=== PATIENT | male | born 1975 | race Caucasian/White ===

== ENCOUNTER 2020-05-04 02:24 | Outpatient (CLI) | payer OTHER, SELFPAY ==
[2020-05-04 19:02] LABS: SARS-CoV-2 RNA PCR Negative
== END 2020-05-04 02:25 | disposition home or self-care (01) ==
LOC: ANHCOVIDDT 02:25
PROVIDERS: PCP Family Medicine; Visit Provider Internal Medicine Critical Care Medicine
DX: Z01.812 Encounter for preprocedural laboratory examination (principal); Z20.828 Contact with and (suspected) exposure to other viral communicable diseases
CPT/HCPCS: 87635; C9803; U0003

== ENCOUNTER 2020-05-06 07:14 | Outpatient (CLI) | payer OTHER, SELFPAY ==
--- NOTE | 2020-06-01 15:13 | WPDSLEEPSTUD ---
Sleep Study Date of Study: 05/06/20 Ordering Provider: Jennifer Núñez MD Interpreting Physician: Jennifer Núñez MD Sleep Study Type: Split Polysomnogram Height: 1.91 m Weight: 127.006 kg Body Mass Index: 34.9 Neck Circumference: 48.26 cm [place]: 13 Reason for Sleep Study DEISY Sleep History Sedrick Brizuela is a 44 yo man with non restorative sleep loud snoring who had a home sleep test Aug 09, 2017 showing severe DEISY with an AHI 45.5 associated with heavy snoring of multiple severe oxygen desaturations. he was tested for sleep apnea in 2018 with a home sleep test showing severe sleep apnea with an AHI of 45.5 with heavy snoring and multiple severe desaturation to to a minimum of 81%. He does not feel refreshed when he wakes in the morning. There is a family history with his father and sister both using CPAP. He rarely awakens at night with heartburn, belching or coughing. He occasionally awakens from sleep feeling short of breath. He rarely has trouble sleep with a cold. He occasionally wakes up gasping for breath at night. He frequently has breathing problems at night observed by others. Frequently sweats excessively at night and notices his heart pounding or beating irregularly at night. He occasionally falls asleep during the day, rarely involuntarily and rarely while driving. Does not fall asleep during physical effort. He does not have loss of muscle tone was strong emotion. 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 He does not feel paralyzed on waking or falling asleep. He rarely has vivid dreamlike scenes upon awakening or falling asleep. He has never a freight to go to sleep. He does not have nightmares. He occasionally remembers his dreams. He occasionally has racing thoughts. He rarely feels sad or depressed. He occasionally has anxiety. He rarely has muscular tension. He occasionally notices parts of his body jerking. He rarely kicks at night. He rarely has crawling and aching feelings in his legs. Does not have leg pain at night. He denies morning jaw pain and does not grind his teeth during sleep. He rarely is bothered by pain during the day, rarely is awakened by pain at night, rarely wakes up feeling stiff in the morning. He does not wake up with sore or achy muscles. He rarely wakes up with neck and spine pain. He has fatigue and takes antacids regularly. Normal bedtime is between 9:10 p.m. falling asleep within minutes, waking 2 or 3 times at night to use the bathroom. He wakes in the morning between 5 and 6:00 a.m.. He estimates 6-8 hours of sleep at night. Weekends, he stays awake later going to bed between 10:00 p.m. and midnight waking between 8 and 9 in the morning. He does take naps. A short nap may be refreshing. He is drowsy in the morning for 1 hour or longer. Habits: He smoked tobacco years ago. Caffeine 2 servings per day. Alcohol is on the weekends mainly. No recreational drugs. [facility] Past Medical History Medical History (Updated 06/01/20 @ 15:34 by Jennifer Núñez MD) Chronic inflammatory demyelinating polyneuritis Metabolic syndrome Obesity (BMI 35.0-39.9 without comorbidity) Prurigo nodularis Tachycardia Surgical History Surgical History (Updated 06/01/20 @ 15:34 by Jennifer Núñez MD) History of hemorrhoidectomy Family History Family History Father Hypertension Grandparent Diabetes mellitus Acute myocardial infarction Other Family history of cardiovascular disease Family history of malignant neoplasm Social History Social History Smoking status: Former smoker Smoking end date: 07/16/11 Alcohol intake: current Medications Home Medications Medication Instructions Recorded Confirmed Type aspirin 325 mg tablet 325 mg PO DAILY 08/06/19 04/12/20 History cholecalciferol (vitamin D3) 125 125 mcg PO DAILY
[2020-06-01 15:39] VITALS: BMI 34.9
== END 2020-05-06 07:15 | disposition home or self-care (01) ==
LOC: ANHCSM 07:15
PROVIDERS: PCP Family Medicine; Visit Provider Internal Medicine Critical Care Medicine
DX: G47.33 Obstructive sleep apnea (adult) (pediatric) (principal)
CPT/HCPCS: 95811

== ENCOUNTER 2021-04-14 14:35 | Outpatient (CLI) | payer OTHER, SELFPAY ==
--- NOTE | 2021-04-14 14:41 | ECG_ITS ---
Measurements Intervals [place] Rate: 85 P: 35 HI: 171 QRS: 30 QRSD: 108 T: -20 QT: 346 QTc: 414 Interpretive Statements SINUS RHYTHM WITH SINUS ARRHYTHMIA BORDERLINE R WAVE PROGRESSION, ANTERIOR LEADS CONSIDER INFERIOR INFARCT, AGE INDETERMINATE ABNORMAL ECG Electronically Signed On 04-14-2021 15:41:55 CDT by Neto Ibrahim D.O.
[2021-04-14 15:10] LABS: Anion Gap 11 mmol/L (8-16); Blood Urea Nitrogen 14 mg/dL (9-20); Calcium 9.4 mg/dL (8.4-10.2); Carbon Dioxide 25 mmol/L (22-30); Chloride 103 mmol/L (98-107); Estimated Glomerular Filt Rate > 60; Glucose 123 mg/dL (65-110); Potassium 3.7 mmol/L (3.4-5.0); Sodium 139 mmol/L (137-145)
== END 2021-04-14 14:36 | disposition home or self-care (01) ==
PROVIDERS: Anesthesiology; PCP Family Medicine; Visit Provider Surgery
DX: Z01.818 Encounter for other preprocedural examination (principal); Z79.899 Other long term (current) drug therapy; I10 Essential (primary) hypertension
CPT/HCPCS: 36415; 80048; 93005

== ENCOUNTER → 2021-04-16 00:09 | Outpatient (CLI) | payer OTHER, SELFPAY ==
[2021-04-16 19:34] LABS: SARS-CoV-2 RNA PCR Negative
== END ==
PROVIDERS: PCP Family Medicine; Visit Provider Surgery
DX: Z01.812 Encounter for preprocedural laboratory examination (principal); Z20.822 Contact with and (suspected) exposure to COVID-19
CPT/HCPCS: C9803; U0003; U0005

== ENCOUNTER 2021-04-21 12:58 | Observation (INO) | payer OTHER, SELFPAY ==
[2021-04-13 09:23] VITALS: BMI 36.1
[2021-04-20] VITALS (19 sets, daily range): BP systolic 132–155; BP diastolic 80–93; PULSE 88–104; RESP 12–25; TEMP 37–37.1; O2SAT 88–97
[2021-04-20] MEDS: ACETAMINOPHEN 500 MG TABLET 1000 MG PO (08:25)
[2021-04-20] MEDS: KETOROLAC 15 MG/ML VIAL (*BKC) IV PUSH (08:35)
[2021-04-20] MEDS: LACTATED RINGERS 1,000 ML 30 ML IV CONT ×3 (08:40→13:42)
[2021-04-20 08:46] LABS: Hematocrit 47.6 % (42.0-52.0); Hemoglobin 16.1 g/dL (14.0-18.0); Mean Corpuscular HGB Conc 33.8 g/dl (32-36); Mean Corpuscular Hemoglobin 28.5 pg (26-34); Mean Corpuscular Volume 84.4 fl (80-100); Mean Platelet Volume 9.4 fl (7.4-10.4); Platelet Count Result 264 k/mm3 (150-375); Red Blood Count 5.64 M/mm3 (4.6-6.20); Red Cell Distribution Width 12.8 % (11.5-14.5); White Blood Count 20.8 K/mm3 (4.5-10.0)
--- NOTE | 2021-04-20 09:29 | WPDANESEPPF ---
Anes - Initial Pre Proc Eval Procedure: Operation Date: 04/20/21 10:00 Proposed Procedures p Laparoscopic Repair Ventral and Umbilical Hernia - Ashish Smith MD Date/Time: 04/20/21 09:29 Surgeon: Ashish Smith MD Pre Op Diagnosis: ventral hernia, umbilical hernia Patient Data Age: 45 Gender: M Height: 1.89 m Weight: 127 kg Last Vital Signs Temp 37.1 C 04/20/21 08:14 Pulse 104 H 04/20/21 08:14 Resp 16 04/20/21 08:14 BP 155/85 H 04/20/21 08:14 Pulse Ox 97 04/20/21 08:14 Allergies Allergy/AdvReac Type Severity Reaction Status Date / Time No Known Allergies Allergy Unknown Verified 04/20/21 08:15 Home Medications Medication Instructions Recorded Confirmed Type aspirin 325 mg tablet 325 mg PO HS 08/06/19 04/20/21 History cholecalciferol (vitamin D3) 125 125 mcg PO DAILY 08/06/19 04/20/21 History mcg (5,000 unit) tablet loratadine 10 mg tablet 10 mg PO DAILY 08/06/19 04/20/21 History testosterone cypionate 200 mg/mL 200 mg IM WEEKLY ml 08/06/19 04/20/21 History intramuscular oil omeprazole magnesium 20 mg 20 mg PO DAILY 03/15/21 04/20/21 History tablet,delayed release lisinopril 20 1 tablet PO DAILY #90 tablet 04/07/21 04/20/21 Rx mg-hydrochlorothiazide 12.5 mg tablet albuterol sulfate 2 puff INHALATION Q4H PRN 04/13/21 04/20/21 History amlodipine 10 mg PO HS 04/13/21 04/20/21 History Laboratory Tests 04/20/21 08:14 WBC 20.8 K/mm3 H K/mm3 (4.5-10.0) RBC 5.64 M/mm3 M/mm3 (4.6-6.20) Hgb 16.1 g/dL g/dL (14.0-18.0) Hct 47.6 % % (42.0-52.0) MCV 84.4 fl fl (80-100) MCH 28.5 pg pg (26-34) MCHC 33.8 g/dl g/dl (32-36) RDW 12.8 % % (11.5-14.5) Plt Count 264 k/mm3 k/mm3 (150-375) MPV 9.4 fl fl (7.4-10.4) Patient hx anesthesia problems: none Family hx anesthesia problems: none Results Review: All pre-operative results and documents have been reviewed as part of the pre-operative evaluation. [facility] Past Medical History Medical History Chronic inflammatory demyelinating polyneuritis Essential (primary) hypertension Metabolic syndrome Obesity (BMI 35.0-39.9 without comorbidity) Prurigo nodularis Tachycardia Surgical History Surgical History History of hemorrhoidectomy Family History Family History Father Hypertension Grandparent Diabetes mellitus Acute myocardial infarction Other Family history of cardiovascular disease Family history of malignant neoplasm Social History Social History Smoking packs per day: 1 Smoking cigarettes per day: 20.0 Years smoked: 15 Smoking pack-years: 15.00 Smoking status: Former smoker Tobacco type: cigarettes Smoking end date: 07/16/15 Alcohol intake: current Drinks per week: 15 Alcohol use details: BEER Substance use: never Substance use type: does not use Living arrangements: with family 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 Informed Consent: The patient's anesthetic plan and its attendant risks and benefits were discussed with the patient/family/POA. Questions were solicited and answers provided to the satisfaction of the patient/family/POA.
--- NOTE | 2021-04-20 09:58 | WPDHPUPDATE1 ---
History and Physical Update Update Date/Time: 04/20/21 09:58 Patient's [place] [address]. Patient examined fully and thorough history taken. He has not had any fever chills dysuria diarrhea or other changes to his usual status. He feels perfectly fine. He has no explanation for why his white blood cell count would be elevated. He has not taken steroids for his demyelinating condition for 6 years. He did receive a testosterone injection 2 days ago which is in my opinion the most likely reason for the elevation. I discussed with him the possibility that there is an occult infection causing the elevated white count. I do not think this is very likely. I think it is safe to go ahead. I did also explained that the risk of proceeding with an elevated white count could be a slightly higher risk of infection from the procedure. The patient would very much like to go ahead today. I think that risk is very minimal. We will go ahead as planned. History and Physical has been reviewed, including an updated exam of the patient. There are NO changes in the patient's condition, other than discussed above. Risks, benefits, and alternatives have been discussed and questions answered. Patient agrees to proceed with procedure.
--- NOTE | 2021-04-20 10:01 | SUR.PREOP ---
dr salguero aware of cbc results with elevated wbc.
[2021-04-20] MEDS: ceFAZolin 3 GM/D5W 100 ML 100 ML IVPB (10:12)
[2021-04-20] MEDS: fentaNYL CITRATE INJ (*CRX) 100 MCG/2 ML VIAL 25 MCG IV PUSH ×8 (12:23→15:18)
--- NOTE | 2021-04-20 12:46 | W.PM.PROC2 ---
Procedure Note - Detailed Date of Procedure 04/20/21 Pre-op Diagnosis ventral hernia, umbilical hernia Post-op Diagnosis same Procedure Performed Laparoscopic repair of ventral and umbilical hernias with 15 x 20 cm Symbotex mesh Surgeon Ashish Smith MD [place] [employer] [facility]ia PENA Anesthesia general and local (1% lidocaine with epinephrine) Indications Patient is a 45-year-old man who noticed a bulge with some discoloration of his umbilical skin. He also has pain and a bulge several cm cephalad to that. He was examined in the office and found to have both a primary ventral hernia in the mid abdomen as well as an umbilical hernia with dusky umbilical skin. He is taken to surgery now for laparoscopic repair of both hernias. Findings Two hernia defects were noted. Both were under 2 cm in size. They were about 5 or 6 cm separate from 1 another. 20 x 15 cm mesh covered both defects with at least 5 cm mesh overlap in all directions. Description of Procedure Patient was taken to surgery and induced into general anesthesia. The abdomen was prepped and draped. Trocars were placed in the usual fashion using 1% lidocaine with epinephrine and applied Medical optical trocars. The left subcostal trocar was placed 1st. Another 5 mm trocar was placed in the left mid abdomen. A 10 11 trocar was placed in the left lower quadrant. Later in the surgery another 5 mm port was placed in the right lateral mid abdomen. The 2 hernias were easily seen laparoscopically. Both had some omentum chronically incarcerated within the hernia defects. This was taken down sharply with minimal cautery. No bowel involvement was present at all. Some hernia sac was also removed from the ventral hernia. The defects were about 5 cm apart and each was less than 2 cm in diameter. A 20 x 15 cm Symbotex was chosen. The mesh was placed over the 2 hernias and an outline of the mesh was drawn on the skin. The anticipated location of the 4 transfascial sutures were then marked along this outline. I then placed 4 sutures of 2-0 Cornell-Drake on the mesh. The mesh was rolled and introduced through the left lower quadrant 10 11 port. It was then opened and turned so that it was appropriately oriented. I used the Skytide suture pass device and passed each of the transfascial sutures through the abdominal wall in the location previously marked. Each of the sutures was then tightened so that the mesh would be placed in its proper position. It covered both defects symmetrically and with at least 5 cm overlap in all directions. I desufflated the abdomen and tied down each of the Cornell-Drake sutures. We then reinsufflated to 12 mmHg. The right-sided 5 mm port was placed. I used the secure strap and secured the mesh to the anterior abdominal wall. Double crown technique was used. The mesh looked to be well secured and in good position. I cut the extra length on the transfascial sutures. The left lateral transfascial suture not came undone at this point. I removed this transfascial suture as it did not really appear to be necessary. We checked again for bleeding or other issues. None was noted. I used the granny suture passed device and the Shine cone and closed the fascia at the left lower quadrant 10 11 trocar site. We then evacuated CO2 and removed the trocar sleeves. The trocar sites were closed at the skin level with 4-0 Monocryl subcuticular skin suture. The sites were dressed with Exofin surgical adhesive. The transfascial suture sites were closed with Exofin as well. The patient was awakened, extubated and taken to recovery in good condition. Sponge and needle counts were correct x2. Implants 15 x 20 cm Symbotex mesh Estimated Blood Loss -5.0 Drains No Packing No Pathology none sent Complications No immediate complications Condition stable Disposition PACU
--- NOTE | 2021-04-20 13:18 | SUR.PHASEI ---
pt is stable and comfortable and now waiting on a room inpt.
--- NOTE | 2021-04-20 15:03 | SUR.PHASEI ---
this nurse called the floor and they said they said they did not get the sbar fexed at 1435. this nurse faxed it again at 1455
[2021-04-20] MEDS: MORPHINE SULFATE (*CRX) 4 MG/ML INJ IV PUSH ×3 (16:02→22:03)
[2021-04-20] MEDS: SENNA/DOCUSATE SODIUM TABLET 2 TAB PO (20:02)
[2021-04-20] MEDS: ASPIRIN 325 MG TABLET PO (20:02)
[2021-04-20] MEDS: amLODIPine BESYLATE 5 MG TABLET 10 MG PO (20:02)
[2021-04-20] MEDS: ENOXAPARIN 30 MG/0.3 ML SYRINGE SUB-Q (20:03)
[2021-04-20] MEDS: HYDROcodone/acetaminophen (*CRX) 5-325 MG TABLET 1 TAB PO (20:21)
[2021-04-21] VITALS (7 sets, daily range): BP systolic 109–143; BP diastolic 62–86; PULSE 66–87; RESP 16–18; TEMP 36.3–37.3; O2SAT 94–99
[2021-04-21] MEDS: MORPHINE SULFATE (*CRX) 4 MG/ML INJ IV PUSH ×4 (00:22→18:43)
[2021-04-21 05:57] LABS: Mean Corpuscular HGB Conc 34.1 g/dl (32-36); Mean Corpuscular Hemoglobin 29.2 pg (26-34); Mean Corpuscular Volume 85.8 fl (80-100); Mean Platelet Volume 9.3 fl (7.4-10.4); Platelet Count Result 244 k/mm3 (150-375); Red Blood Count 5.13 M/mm3 (4.6-6.20); Red Cell Distribution Width 13.1 % (11.5-14.5)
[2021-04-21 06:06] LABS: Anion Gap 7 mmol/L (8-16); Blood Urea Nitrogen 10 mg/dL (9-20); Calcium 8.5 mg/dL (8.4-10.2); Carbon Dioxide 26 mmol/L (22-30); Chloride 105 mmol/L (98-107); Estimated CRCL calculation 165 ml/min; Estimated Glomerular Filt Rate > 60; Glucose 99 mg/dL (65-110); Potassium 3.8 mmol/L (3.4-5.0); Sodium 138 mmol/L (137-145)
[2021-04-21] MEDS: CHOLECALCIFEROL 1,000 UNITS TABLET 5000 UNITS PO (08:06)
[2021-04-21] MEDS: polyethylene glycoL 3350 17 GM POWD.PACK PO (08:06)
[2021-04-21] MEDS: lisinopriL 20 MG TABLET PO (08:07)
[2021-04-21] MEDS: hydroCHLOROthiazide 12.5 MG CAPSULE PO (08:07)
--- NOTE | 2021-04-21 09:39 | WPDANESPN ---
Anes - Prog Note Post-Op Date/Time: 04/21/21 09:39 Cardiovascular status: normal Respiratory status: normal Airway patency: baseline Mental status: baseline Post-Op hydration status: normal Vital Signs: Last Vital Signs Temp 36.9 C 04/21/21 05:40 Pulse 77 04/21/21 05:40 Resp 18 04/21/21 05:40 BP 143/85 H 04/21/21 05:40 Pulse Ox 99 04/21/21 05:40 Pain Score (VAS): 0 I/O: Intake & Output 04/20/21 04/21/21 04/21/21 23:59 07:59 15:59 Intake Total 740 500 240 Output Total 700 1300 Balance 40 -800 240 Laboratory Tests 04/21/21 05:37 04/21/21 05:37 04/21/21 04/21/21 05:37 05:37 WBC 14.0 H RBC 5.13 Hgb 15.0 Hct 44.0 MCV 85.8 MCH 29.2 MCHC 34.1 RDW 13.1 Plt Count 244 MPV 9.3 Sodium 138 Potassium 3.8 Chloride 105 Carbon Dioxide 26 Anion Gap 7 L BUN 10 Creatinine 0.70 Estim Creat Clear Calc 165 Estimated GFR > 60 Glucose 99 Calcium 8.5 Post-procedural complaints: none Patient Feedback: Patient satisfied with anesthetic care.
[2021-04-21] MEDS: ENOXAPARIN 40 MG/0.4 ML SYRINGE SUB-Q (09:50)
[2021-04-21] MEDS: LORATADINE 10 MG TABLET PO (09:50)
--- NOTE | 2021-04-21 09:50 | PM.PNGS ---
Progress Note: A&P Assessment and Plan (1) Ventral hernia without obstruction or gangrene: Code(s): K43.9 - Ventral hernia without obstruction or gangrene Status: Acute Assessment and Plan: Postop day 1 and patient is having quite a bit of pain this morning. He is still requiring IV analgesics. Will give a secondary option for Casey for more severe pain. Encouraged switching to oral analgesics when able. Also encouraged to start increasing activity and try ambulating today. Repeat labs tomorrow. Hopefully, the patient can be discharged in the next 1-2 days if he continues to improve. (2) Asthma: Qualifiers: Asthma severity: unspecified severity Asthma persistence: unspecified Asthma complication type: unspecified Qualified Code(s): J45.909 - Unspecified asthma, uncomplicated Code(s): J45.909 - Unspecified asthma, uncomplicated Status: Acute Assessment and Plan: Stable. No wheezing on exam or respiratory complaints. Continue PRN Albuterol. (3) Essential (primary) hypertension: Code(s): I10 - Essential (primary) hypertension Status: Chronic Assessment and Plan: BP stable. Continue home medication. (4) Leukocytosis: Code(s): D72.829 - Elevated white blood cell count, unspecified Status: Acute Assessment and Plan: Leukocytosis of an unknown etiology noted on pre-op labs with WBC 20,000. No evidence or signs of an infectious process. Repeat labs today showed WBC down to 14,000. Will repeat labs again tomorrow and monitor. Additional Plan I have discussed the plan of care with Dr. Salguero. Subjective Subjective Date/Time Seen: 04/21/21 09:50 Post Op day: 1 (Laparoscopic repair of ventral and umbilical hernias with Symbotex mesh) Patient reports: still having pain, tolerating a regular diet, voiding w/o difficulty, no flatus, no bowel movement and afebrile Interval history: This is a 45-year-old male who presented yesterday for an elective laparoscopic ventral and umbilical hernia repair. He underwent surgery by Dr. salguero yesterday. Following surgery, he has been having postoperative pain requiring IV analgesics. The patient is now seen and examined this morning. He reports feeling very sore and sat up in the chair this morning for the 1st time since surgery. He very recently had morphine, which she states has helped his pain but quickly returns as the source off. No nausea or vomiting. Tolerating his diet. No other complaints at this time. Review of Systems Review of Systems: All systems reviewed & are unremarkable except as noted in HPI and below Constitutional: Constitutional: Reports as per HPI, Reports no additional constitutional complaints, Denies chills and Denies fever(s) Cardiovascular: Cardiovascular: Reports no additional cardiovascular complaints, Denies chest pain and Denies leg edema Respiratory: Respiratory: Reports no additional respiratory complaints, Denies cough and Denies dyspnea Gastrointestinal: Gastrointestinal: Reports as per HPI and Reports no additional gastrointestinal complaints Neurologic: Reports system reviewed and no additional complaints, except as documented, Denies Abnormal speech present and Denies focal weakness Exam Const: General: comfortable, no acute distress, alert and awake Orientation/consciousness: patient oriented x3 Resp: Effort & Inspection: normal respiratory effort Auscultation: clear to auscultation bilaterally Cardio: Rate: regular rate Rhythm: regular rhythm GI: Inspection: non-distended and obesity GI Palp: Yes Soft to palpation, Yes Tenderness to palpation present (GI) (incisional), No Guarding due to palpation present (GI) and No Hernia present Auscultation: Hypoactive bowel sounds present Other: Trocar incisions clean and dry, minimal localized ecchymosis no more than expected Skin: General skin exam: normal color Neuro: General: moves all extremities and no focal motor defici
[2021-04-21] MEDS: HYDROcodone/acetaminophen (*CRX) 10-325 MG TABLET 1 TAB PO ×3 (10:25→22:35)
[2021-04-21] MEDS: MORPHINE SULFATE (*CRX) 2 MG/ML INJ IV PUSH (13:18)
[2021-04-21] MEDS: SENNA/DOCUSATE SODIUM TABLET 2 TAB PO (20:06)
[2021-04-21] MEDS: amLODIPine BESYLATE 5 MG TABLET 10 MG PO (20:06)
[2021-04-21] MEDS: ASPIRIN 325 MG TABLET PO (20:07)
[2021-04-22 04:15] VITALS: BP 124/74; PULSE 81; RESP 17; TEMP 37.1; O2SAT 97
[2021-04-22] MEDS: HYDROcodone/acetaminophen (*CRX) 10-325 MG TABLET 1 TAB PO ×2 (04:48→10:48)
[2021-04-22 05:55] LABS: Hematocrit 46.4 % (42.0-52.0); Mean Corpuscular HGB Conc 32.3 g/dl (32-36); Mean Corpuscular Hemoglobin 28.4 pg (26-34); Mean Corpuscular Volume 87.7 fl (80-100); Mean Platelet Volume 8.9 fl (7.4-10.4); Platelet Count Result 231 k/mm3 (150-375); Red Blood Count 5.29 M/mm3 (4.6-6.20); Red Cell Distribution Width 13.2 % (11.5-14.5); White Blood Count 10.4 K/mm3 (4.5-10.0)
[2021-04-22 06:04] LABS: Anion Gap 6 mmol/L (8-16); Blood Urea Nitrogen 10 mg/dL (9-20); Calcium 8.5 mg/dL (8.4-10.2); Carbon Dioxide 30 mmol/L (22-30); Chloride 101 mmol/L (98-107); Estimated CRCL calculation 146 ml/min; Estimated Glomerular Filt Rate > 60; Glucose 101 mg/dL (65-110); Potassium 4.1 mmol/L (3.4-5.0); Sodium 137 mmol/L (137-145)
[2021-04-22] MEDS: CHOLECALCIFEROL 1,000 UNITS TABLET 5000 UNITS PO (08:44)
[2021-04-22] MEDS: lisinopriL 20 MG TABLET PO (08:44)
[2021-04-22] MEDS: ENOXAPARIN 40 MG/0.4 ML SYRINGE SUB-Q (08:44)
[2021-04-22] MEDS: hydroCHLOROthiazide 12.5 MG CAPSULE PO (08:44)
[2021-04-22] MEDS: LORATADINE 10 MG TABLET PO (08:45)
[2021-04-22] MEDS: polyethylene glycoL 3350 17 GM POWD.PACK PO (08:46)
--- NOTE | 2021-04-22 10:42 | PM.DS ---
DS: Admitting Diagnosis Discharge Date 04/22/2021 Admitting Diagnosis ventral and umbilical hernias obesity asthma DS: Discharge Diagnosis Discharge Diagnosis (1) Ventral hernia without obstruction or gangrene: Code(s): K43.9 - Ventral hernia without obstruction or gangrene Status: Acute (2) Obstructive sleep apnea syndrome: Onset Date: ~2017 Code(s): G47.33 - Obstructive sleep apnea (adult) (pediatric) Status: Chronic DS: Summary Hospital Course Hospital Course: patient noticed both an umbilical bulge and a bulge above the umbilicus in the midline. The umbilical bulge had gotten larger and the umbilical skin was discolored. He was seen in the office and found to have both a primary ventral hernia in the mid abdomen as well as an umbilical hernia just below the ventral hernia. He was taken to surgery on the day of admission, 04/20/2021 and underwent laparoscopic repair of both hernias with 20 x 15 Symbotex mesh. Postoperatively he did well. He was still requiring IV analgesics on postoperative day 1. But was comfortable on oral analgesics on postop day 2. He received some laxatives on postop day 2. And was able to have a bowel movement. He went home later in the day. Status at Discharge Overall status at discharge: patient is progressing back to baseline Time Spent with Patient Time attestation: Total time spent providing and/or coordinating discharge services: Exam Const: General: comfortable, no acute distress, alert and awake Nutritional Appearance: overweight Orientation/consciousness: patient oriented x3 GI: Inspection: incision ( All trocar sites healing well) and obesity GI Palp: Yes Soft to palpation and Yes Tenderness to palpation present (GI) ( mild tenderness) Auscultation: normal bowel sounds DS: Data Data Completed and Pending Labs on day of discharge: Labs from last 24 hours 04/22/21 04/22/21 05:46 05:46 WBC 10.4 H RBC 5.29 Hgb 15.0 Hct 46.4 MCV 87.7 MCH 28.4 MCHC 32.3 RDW 13.2 Plt Count 231 MPV 8.9 Sodium 137 Potassium 4.1 Chloride 101 Carbon Dioxide 30 Anion Gap 6 L BUN 10 Creatinine 0.80 Estim Creat Clear Calc 146 Estimated GFR > 60 Glucose 101 Calcium 8.5 Discharge Plan Discharge Attending physician on discharge: Ashish Smith Discharging Clinician: Luis,Ashish A. Anticipated Discharge Date/Time: 04/22/21 15:00 Patient Disposition: Home, Self-Care Activity: may shower, no straining and as tolerated Diet: regular Wound Care Instructions: incision open to air Discharge Instructions: Ambulate 3-4 x per day and as tolerated. No lifting over 15-20lbs. May bathe or shower. Stairs are OK. May drive a car in 3 days. Patient Instructions: Antibiotic Form Stand Alone Forms: General Discharge Information Follow-up/Referrals: Ashish Smith MD [Physician] - 2 Weeks Discharge Medications: New hydrocodone-acetaminophen 5-325 mg tablet 1 - 2 tablet PO Q6H PRN (Reason: pain) Qty: 20 RF: 0 sennosides-docusate sodium [Senokot-S] 8.6-50 mg Tablet 2 tab PO HS Qty: 14 RF: 0 polyethylene glycol 3350 [Miralax] 17 gram Powder In Packet 17 g PO QAM Qty: 15 RF: 0 ketorolac 10 mg tablet 10 mg PO Q6H 4 Days Qty: 16 RF: 0 Continued omeprazole magnesium [Prilosec OTC] 20 mg tablet,delayed release (DR/EC) 20 mg PO DAILY RF: 0 testosterone cypionate [Depo-Testosterone] 200 mg/mL oil 200 mg IM WEEKLY RF: 0 loratadine [Claritin] 10 mg tablet 10 mg PO DAILY RF: 0 aspirin 325 mg tablet 325 mg PO HS RF: 0 cholecalciferol (vitamin D3) 125 mcg (5,000 unit) tablet 125 mcg PO DAILY RF: 0 amlodipine 10 mg tablet 10 mg PO HS RF: 0 albuterol sulfate 90 mcg/actuation HFA aerosol inhaler 2 puff inhalation Q4H PRN (Reason: Bronchospasm) RF: 0 lisinopril-hydrochlorothiazide 20-12.5 mg tablet 1 tablet PO DAILY
[2021-04-22] MEDS: MAGNESIUM CITRATE 300 ML BTL 150 ML PO (10:50)
== END 2021-04-22 15:57 | disposition home or self-care (01) ==
LOC: ANHSURGERY 15:00 → ANH3MED 15:00
PROVIDERS: Admitting Provider Surgery; PCP Family Medicine; Visit Provider Surgery
PROC: (CPT 49653; principal; 2021-04-20 10:00)
DX: K43.9 Ventral hernia without obstruction or gangrene (principal); K42.9 Umbilical hernia without obstruction or gangrene; D72.829 Elevated white blood cell count, unspecified; J45.909 Unspecified asthma, uncomplicated; I10 Essential (primary) hypertension; G47.33 Obstructive sleep apnea (adult) (pediatric); E66.9 Obesity, unspecified; Z68.35 Body mass index [BMI] 35.0-35.9, adult
CPT/HCPCS: 49653; 36415; 80048; 85027; 93005; A9270; C1781; C9803; G0378; J0330; J0690; J1100; J1170; J1650; J1885; J2250; J2270; J2405; J2704; J2710; J3010; J7120; U0003; U0005